=== PATIENT | female | born 1950 | race Caucasian/White ===

== ENCOUNTER → 2016-11-27 | Outpatient (CLI) | payer BC ==
--- NOTE | 2016-12-01 08:14 | MM ---
Reason for exam: screening (asymptomatic). Last mammogram was performed 1 year and 1 month ago. History: Patient is postmenopausal. Benign core biopsy of the left breast, 1996. Physical Findings: A clinical breast exam by your physician is recommended on an annual basis and results should be correlated with mammographic findings. MG 3D Screening Mammo W/Cad Bilateral CC and MLO view(s) were taken. Prior study comparison: November 08, 2015, bilateral MG screening mammo w CAD. October 31, 2014, bilateral MG screening mammo w CAD. October 02, 2013, bilateral digital screening mammo w/CAD. There are scattered fibroglandular densities. No significant changes when compared with prior studies. ASSESSMENT: Negative, BI-RAD 1 RECOMMENDATION: Routine screening mammogram of both breasts in 1 year.
== END | disposition home or self-care (01) ==
LOC: RADMAMWWP 07:15
PROVIDERS: ATTEND Surgery
DX: Z12.31 Encounter for screening mammogram for malignant neoplasm of breast (principal)
CPT/HCPCS: 77063; G0202

== ENCOUNTER → 2016-12-09 | Outpatient (CLI) | payer BC ==
--- NOTE | 2016-12-09 16:39 | WWHP ---
DATE OF DICTATION: 12/09/2016 CHIEF COMPLAINT: The patient is here for her routine gynecologic exam. HISTORY OF PRESENT ILLNESS: This is a 66-year-old G2, P2 with an LMP of 2001. The patient is without gynecologic complaints and denies any postmenopausal bleeding. The patient had a recent mammogram on 11/27/16 which was negative. PAST MEDICAL HISTORY: Chronic hypertension and elevated cholesterol. MEDICATIONS: 1. Hyzaar 1 daily. 2. Caduet 1 daily. ALLERGIES: NO KNOWN DRUG ALLERGIES. 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 SOCIAL HISTORY: She denies tobacco, alcohol and drug use. 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 REVIEW OF SYSTEMS: She has gained 2 pounds over the last year. She denies respiratory, cardiac or GI problems. She has noticed occasional leg swelling and has had some left calf discomfort which is intermittent. PHYSICAL EXAM: Blood pressure 119/81. Height 5 feet 6 inches. Weight 248 pounds. Temperature 98.6. Pulse 71. This is a well-developed, well-nourished white female who is alert and oriented x3, in no acute distress. HEENT is within normal limits. NECK: Supple without mass or thyromegaly. CHEST AND LUNGS: Clear to auscultation. HEART: Regular rate and rhythm. Breasts are without mass or discharge. Axillary exam is negative for adenopathy. BACK: Negative for CVA tenderness. ABDOMEN: Soft, nontender, without palpable masses. PELVIC EXAM: External genitalia reveal mild atrophy without lesions. Cervix and vagina reveal mild to moderate atrophy without lesions. The cervix is somewhat stenotic consistent with atrophy. There is no evidence of prolapse. The uterus is midposition, nongravid size and nontender. There are no palpable adnexal masses or tenderness. Rectovaginal exam is negative for mass or tenderness and is negative for occult blood. EXTREMITIES: Nontender. There is no calf tenderness. Lui's sign is negative. IMPRESSION: 1. A 66-year-old menopausal female with normal gynecologic exam. 2. No evidence of deep venous thrombosis. PLAN: 1. Pap smear was performed by the patient's request. She understands that I am recommending the Pap smear be done about every 3 years, but she feels strongly that she would like to have it done today and done yearly. 2. Self breast examination was discussed. 3. Mammogram will be due in one year. 4. Osteoporosis prevention was discussed. Bone density screening was recommended and a slip was given to the patient for this. 5. I have recommended that she try compression stockings to see if this helps with her calf discomfort. She can also follow up with Dr. Perea if she continues to have issues with this. 6. She will return in one year.
== END | disposition home or self-care (01) ==
LOC: WWCWWP 08:30
PROVIDERS: ATTEND Obstetrics & Gynecology
DX: Z53.9 Procedure and treatment not carried out, unspecified reason (principal)

== ENCOUNTER → 2018-01-19 | Outpatient (CLI) | payer BC ==
[2018-01-19 08:11] VITALS: BP 141/68; PULSE 64; TEMP 96.7; BMI 36.0
--- NOTE | 2018-01-19 08:59 | P.HPOB ---
History of Present Illness H&P Date: 01/19/18 Chief Complaint: The patient is here for her routine gynecologic exam and mammogram. This is a 67-year-old with an LMP of 2001. The patient is without gynecologic complaints and denies any postmenopausal bleeding. The patient's last Pap smear was on 12/09/2016 and showed ascus with negative high-risk HPV testing. Review of Systems The patient's weight has been stable over the last year. She denies respiratory , cardiac, or G.I. problems. Past Medical History Past Medical History: Hyperlipidemia, Hypertension, Osteoarthritis (OA) Additional Past Medical History / Comment(s): hx migraines, varicose veins. 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 History of Any Multi-Drug Resistant Organisms: None Reported Past Surgical History: Breast Surgery (Biopsy 1996), Orthopedic Surgery (rt knee arthroscopy), Tonsillectomy Additional Past Surgical History / Comment(s): rt cataract. 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 [employer] - Past Family History Mother Family Medical History: Cancer (Pancreas) Brother(s) Family Medical History: Cancer (Pancreas) Medications and Allergies Home Medications Medication Instructions Recorded Confirmed Type Caduet(Dose Unknown) 1 tab PO QAM 07/14/17 01/19/18 History Losartan/Hydrochlorothiazide 1 each PO QAM 07/14/17 01/19/18 History [Losartan-Hctz 100-25 mg Tab] Allergies Allergy/AdvReac Type Severity Reaction Status Date / Time No Known Allergies Allergy Verified 01/19/18 08:07 Exam - Vital Signs Vital signs: Vital Signs Temp Pulse BP 01/19/18 08:07 96.7 F L 64 141/68 Intake and Output 01/18/18 01/19/18 01/19/18 22:59 06:59 14:59 Other: Weight 113.6 Height 5'7" BMI 39. This is a well-developed well-nourished heavyset white female who is alert and oriented times 3 in no acute distress. HEENT: Within normal limits. NECK: Supple without mass or thyromegaly. CHEST AND LUNGS: Clear to auscultation. HEART: Regular rate and rhythm. BREASTS: Are without mass or discharge. AXILLARY EXAM: Negative for adenopathy. BACK: Negative for CVA tenderness. ABDOMEN: Soft, nontender, without palpable masses. PELVIC EXAM: Normal external genitalia with mild atrophy. Cervix and vagina appear normal with mild atrophy. The cervix is somewhat stenotic secondary to atrophy. There is no unusual discharge. There is no evidence of prolapse. The uterus is midposition, nongravid size and nontender. There are no palpable adnexal masses or tenderness. RECTAL EXAM: rectovaginal exam is negative for mass or tenderness and is negative for occult blood. EXTREMITIES: Nontender. IMPRESSION: 1. 67-year-old menopausal female with normal gynecologic exam. 2. Previous ascus Pap smear with negative high-risk HPV testing on 12/09/2016. PLAN: 1. Pap smear with high-risk HPV testing (co-test)was done. 2. Self breast awareness was discussed. 3. Screening mammogram will be done today. 4. Osteoporosis prevention was discussed. Bone density screening will be done today. 5. I have recommended screening colonoscopy since it has been about 10 years since her last one. She will talk to Dr. Perea about arranging this. 6. She will return in one year.
--- NOTE | 2018-01-19 11:28 | BD ---
EXAMINATION TYPE: Axial Bone Density DATE OF EXAM: 01/19/2018 COMPARISON: 10/18/2003 CLINICAL HISTORY: Z78.0 POST SHAHBAZ WITHOUT HRT Height: 64.7 IN Weight: 251 LBS RISK FACTORS HISTORY OF: Active: YES Postmenopausal woman: AGE 52 MEDICATIONS: Additional Medications: BLOOD PRESSURE MEDS EXAM MEASUREMENTS: Bone mineral densitometry was performed using the [employer] System. Bone mineral density as measured about the Lumbar spine is: ----- L1-L4(G/cm2): 1.373 T Score Values are as follows: ----- L2: 0.5 ----- L3: 2.2 ----- L4: 2.3 ----- L1-L4: 1.6 Bone mineral density has: Increased 1.5% since study of: 10/18/2003 Bone mineral density about the R hip (g/cm2): 0.984 Bone mineral density about the L hip (g/cm2): 1.035 T Score values are as follows: -----R Neck: -0.4 -----L Neck: 0.0 -----R Total: 0.3 -----L Total: 0.6 Bone mineral density has: Decreased -4.0% since study of: 10/18/2003 IMPRESSION: No evidence for osteoporosis or osteopenia. NOTE: T-SCORE=SD OF THE YOUNG ADULT MEAN.
--- NOTE | 2018-01-20 13:46 | MM ---
Reason for exam: screening (asymptomatic). Last mammogram was performed 1 year and 2 months ago. History: Patient is postmenopausal. Benign core biopsy of the left breast, 1996. Physical Findings: A clinical breast exam by your physician is recommended on an annual basis and results should be correlated with mammographic findings. MG 3D Screening Mammo W/Cad Bilateral CC and MLO view(s) were taken. Prior study comparison: November 27, 2016, bilateral MG 3d screening mammo w/cad. November 08, 2015, bilateral MG screening mammo w CAD. The breast tissue is heterogeneously dense. This may lower the sensitivity of mammography. Stable benign calcifications. There is no discrete abnormality. No significant changes when compared with prior studies. ASSESSMENT: Benign, BI-RAD 2 RECOMMENDATION: Routine screening mammogram of both breasts in 1 year.
--- NOTE | 2018-01-25 18:49 | P.PN ---
Progress Note - Text Progress Note Date: 01/25/18 OUTPATIENT FOLLOW-UP NOTE TEST(S)/RESULTS: test results from 01/19/2018 include negative Pap smear, negative high risk HPV, benign mammogram and normal bone density METHOD OF NOTIFICATION: the patient was notified by phone PATIENT COMMENTS: understands the results DIAGNOSIS: negative test results DISCUSSION: the patient's Pap smear Las year showed ascus with negative high- risk HPV. PLAN: the patient can return to normal cervical screening. She will return in one year for her annual exam. Pap smear will be repeated in 2 to 3 years. Mammogram in one year and bone density testing in 6 years.
== END | disposition home or self-care (01) ==
LOC: WWCWWP 07:57
PROVIDERS: ATTEND Obstetrics & Gynecology
DX: Z12.31 Encounter for screening mammogram for malignant neoplasm of breast (principal); Z78.0 Asymptomatic menopausal state
CPT/HCPCS: 77063; 77067; 77080

== ENCOUNTER → 2019-03-21 | Outpatient (CLI) | payer BC ==
[2019-03-21 14:16] VITALS: BP 132/77; PULSE 77; RESP 18; TEMP 98.1; BMI 37.3
--- NOTE | 2019-03-21 15:04 | P.HPOB ---
History of Present Illness H&P Date: 03/21/19 Chief Complaint: The patient is here for her routine gynecologic exam and ma mmogram. This is a 68-year-old with an LMP of 2001. The patient is without gynecologic complaints and denies any postmenopausal bleeding. Review of Systems She has lost about 12 pounds over the past year. She denies respiratory, cardiac and G.I. problems. She denies maltreatment or problems with falling. : she denies any significant problems with urinary leakage. Past Medical History Past Medical History: Hyperlipidemia, Hypertension, Osteoarthritis (OA) Additional Past Medical History / Comment(s): hx migraines, varicose veins. 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 History of Any Multi-Drug Resistant Organisms: None Reported Past Surgical History: Breast Surgery, Orthopedic Surgery, Tonsillectomy Additional Past Surgical History / Comment(s): rt cataract. Right breast biopsy. Right arthroscopic knee surgery. Colonoscopy 2018(2nd). 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 - Past Family History Mother Family Medical History: Cancer Additional Family Medical History / Comment(s): Cancer of the pancreas. Brother(s) Family Medical History: Cancer Additional Family Medical History / Comment(s): Cancer of the pancreas. Medications and Allergies Home Medications Medication Instructions Recorded Confirmed Type Caduet(Dose Unknown) 1 tab PO QAM 07/14/17 03/21/19 History Losartan/Hydrochlorothiazide 1 each PO QAM 07/14/17 03/21/19 History [Losartan-Hctz 100-25 mg Tab] Allergies Allergy/AdvReac Type Severity Reaction Status Date / Time No Known Allergies Allergy Verified 03/21/19 14:17 Exam Vital Signs Temp Pulse Resp BP Pulse Ox 03/21/19 14:08 98.1 F 77 18 132/77 96 Intake and Output 03/20/19 03/21/19 03/21/19 22:59 06:59 14:59 Other: Weight 107.955 kg Height 5'7", weight 238 pounds, BMI 37.3. This is a well-developed well-nourished heavyset white female who is alert and oriented times 3 in no acute distress. HEENT: Within normal limits. NECK: Supple without mass or thyromegaly. CHEST AND LUNGS: Clear to auscultation. HEART: Regular rate and rhythm. BREASTS: Are without mass or discharge. AXILLARY EXAM: Negative for adenopathy. BACK: Negative for CVA tenderness. ABDOMEN: Soft, nontender, without palpable masses. PELVIC EXAM: Normal external genitalia with mild atrophy. Cervix and vagina appear normal with mild atrophy. The cervix is somewhat stenotic secondary to atrophy. There is no unusual discharge. There is no evidence of prolapse. The uterus is midposition, nongravid size and nontender. There are no palpable adnexal masses or tenderness. RECTAL EXAM: rectovaginal exam is negative for mass or tenderness and is negative for occult blood. EXTREMITIES: Nontender. IMPRESSION: 1. 68-year-old menopausal female with normal gynecologic exam. 2. History of ASCUS Pap smear with negative high-risk HPV testing in 2017. She had a negative Pap smear co-test in 2018. PLAN: 1. We talked about her Pap smear testing and I have recommended to resume Pap smears every 2 to 3 years. She feels strongly that she would like to have Pap smear done again today because of her abnormal Pap smear in 2017. Pap smear was performed. 2. Self breast awareness was discussed with the patient. 3. Screening mammogram will be done today. 4. Osteoporosis prevention was discussed. I have stressed the importance of adequate calcium, vitamin D and regular exercise. Recommended amounts of calcium and vitamin D were also discussed. She had a normal bone density test done on 01/19/2018 and this will be repeated after 6 years. 5. She states she does not get flu shots in the fall. I recommended that she reconsider this and I have given her reasons why. 6. She was advised to return in one year for her annual well woman exam.
--- NOTE | 2019-03-23 11:34 | MM ---
Reason for exam: screening (asymptomatic). Last mammogram was performed 1 year and 2 months ago. History: Patient is postmenopausal. Benign core biopsy of the left breast, 1996. Physical Findings: A clinical breast exam by your physician is recommended on an annual basis and results should be correlated with mammographic findings. MG 3D Screening Mammo W/Cad Bilateral CC and MLO view(s) were taken. Prior study comparison: January 19, 2018, bilateral MG 3d screening mammo w/cad. November 27, 2016, bilateral MG 3d screening mammo w/cad. There are scattered fibroglandular densities. No significant changes when compared with prior studies. ASSESSMENT: Benign, BI-RAD 2 RECOMMENDATION: Routine screening mammogram of both breasts in 1 year.
== END ==
LOC: WWCWWP 14:01
PROVIDERS: ATTEND Obstetrics & Gynecology
DX: Z12.31 Encounter for screening mammogram for malignant neoplasm of breast (principal)
CPT/HCPCS: 77063; 77067

== ENCOUNTER → 2020-06-11 | Outpatient (CLI) | payer BC ==
[2020-06-11 09:30] VITALS: BP 147/84; PULSE 62; RESP 18; TEMP 97.8
--- NOTE | 2020-06-11 10:15 | P.HPOB ---
History of Present Illness H&P Date: 06/11/20 Chief Complaint: The patient is here for her routine gynecologic exam. This is a 70-year-old with an LMP of 2001. The patient is without gynecologic complaints. Review of Systems She has gained about 18 pounds over the past year. She denies respiratory, cardiac and G.I. problems. She denies maltreatment or problems with falling. : Occasional urinary leakage if she doesn't get to the bathroom in time. She especially notices this when she gets up in the morning. Past Medical History Past Medical History: Hyperlipidemia, Hypertension, Osteoarthritis (OA) Additional Past Medical History / Comment(s): hx migraines, varicose veins. 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 History of Any Multi-Drug Resistant Organisms: None Reported Past Surgical History: Breast Surgery, Orthopedic Surgery, Tonsillectomy Additional Past Surgical History / Comment(s): rt cataract. Right breast biopsy . Right arthroscopic knee surgery. Colonoscopy 2018(2nd). 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. - Past Family History Mother Family Medical History: Cancer Additional Family Medical History / Comment(s): Cancer of the pancreas. Brother(s) Family Medical History: Cancer Additional Family Medical History / Comment(s): Cancer of the pancreas. Medications and Allergies Home Medications Medication Instructions Recorded Confirmed Type Caduet(Dose Unknown) 1 tab PO QAM 07/14/17 06/11/20 History Losartan/Hydrochlorothiazide 1 each PO QAM 07/14/17 06/11/20 History [Losartan-Hctz 100-25 mg Tab] Allergies Allergy/AdvReac Type Severity Reaction Status Date / Time No Known Allergies Allergy Verified 06/11/20 09:24 Exam Vital Signs Temp Pulse Resp BP Pulse Ox 06/11/20 09:24 97.8 F 62 18 147/84 98 Intake and Output 06/10/20 06/11/20 06/11/20 22:59 06:59 14:59 Other: Weight 116.12 kg Height 5 feet 6-1/2 inches, weight 256 pounds, BMI 40.7. This is a well-developed well-nourished heavyset white female who is alert and oriented times 3 in no acute distress. HEENT: Within normal limits. NECK: Supple without mass or thyromegaly. CHEST AND LUNGS: Clear to auscultation. HEART: Regular rate and rhythm. BREASTS: Are without mass or discharge. AXILLARY EXAM: Negative for adenopathy. BACK: Negative for CVA tenderness. ABDOMEN: Soft, nontender, without palpable masses. PELVIC EXAM: Normal external genitalia with mild atrophy. Cervix and vagina appear normal mild atrophy. There is no unusual discharge. There is no evidence of prolapse. The uterus is midposition, nongravid size and nontender. There are no palpable adnexal masses or tenderness. RECTAL EXAM: Rectovaginal exam is negative for mass or tenderness and is negative for occult blood. EXTREMITIES: Nontender. IMPRESSION: 1. 70-year-old menopausal female with normal gynecologic exam. 2. Elevated blood pressure with history of chronic hypertension. PLAN: 1. Pap smear was deferred since she had a normal one on 03/21/2019. We will plan on repeating it again at her next well woman examination because of her abnormal Pap smear showing ASCUS with negative high-risk HPV the testing in 2017. She has had 2 normal one since then. If the next Pap smear is negative, we'll consider discontinuing Pap smears. 2. Self breast awareness was discussed with the patient. 3. Screening mammogram is due and the order slip was given to the patient for this. 4. Osteoporosis prevention was discussed. I have stressed the importance of adequate calcium, vitamin D and regular exercise. Recommended amounts of calcium and vitamin D were also discussed. She had a normal bone density test in 2018 and we will plan on repeating this in approximately 2022. 5. She states she did not take her blood pressure medication this morning and she will do this as soon as possible. I have recommended that she check her own blood pressures on a regular basis and follow-up with Dr. Perea for blood pressure elevations. 6. She states she does not get flu shots. I have strongly recommended that she reconsider this. 7. The patient was advised to return in 1-2 years for her well woman examination.
== END | disposition home or self-care (01) ==
LOC: WWCWWP 09:14
PROVIDERS: ATTEND Obstetrics & Gynecology
DX: Z53.9 Procedure and treatment not carried out, unspecified reason (principal)

== ENCOUNTER → 2020-11-07 | Outpatient (CLI) | payer BC ==
--- NOTE | 2020-11-08 11:18 | MM ---
Reason for exam: screening (asymptomatic). Last mammogram was performed 1 year and 8 months ago. History: Patient is postmenopausal. Benign core biopsy of the left breast, 1996. Physical Findings: A clinical breast exam by your physician is recommended on an annual basis and results should be correlated with mammographic findings. MG 3D Screening Mammo W/Cad Bilateral CC and MLO view(s) were taken. Prior study comparison: March 21, 2019, bilateral MG 3d screening mammo w/cad. January 19, 2018, bilateral MG 3d screening mammo w/cad. The breast tissue is heterogeneously dense. This may lower the sensitivity of mammography. Stable benign calcifications. No significant changes when compared with prior studies. ASSESSMENT: Benign, BI-RAD 2 RECOMMENDATION: Routine screening mammogram of both breasts in 1 year.
== END | disposition home or self-care (01) ==
LOC: RADMAMWWP 08:51
PROVIDERS: ATTEND Obstetrics & Gynecology
DX: Z12.31 Encounter for screening mammogram for malignant neoplasm of breast (principal)
CPT/HCPCS: 77063; 77067

== ENCOUNTER 2020-11-20 06:19 | Day surgery (SDC) | payer BC ==
[2020-11-14 15:33] VITALS: BMI 39.1
--- NOTE | 2020-11-19 22:59 | HP ---
HISTORY AND PHYSICAL DATE OF SURGERY: 11/20/2020 Merna Yun is a 70-year-old patient seen with progressive right shoulder pain. We discussed options for treatment. She elected to proceed with arthroscopy. Consent regarding the procedure was obtained. Clearance was provided by Dr. Cristian Perea. PAST MEDICAL HISTORY: Hypertension. PAST SURGICAL HISTORY: Knee arthroscopy. DAILY MEDICATIONS: Caduet. ALLERGIES: NONE. SOCIAL HISTORY: She denies current tobacco use. PHYSICAL EVALUATION OF THE RIGHT SHOULDER: Flexion 90 degrees, abduction 80 degrees. External rotation is 35 degrees with pain and weakness. Tenderness along the anterolateral acromion and rotator cuff insertion site. Impingement sign is positive at 90 degrees. Drop-arm sign is positive. Distal neurovascular exam is intact. RADIOGRAPHS: Radiographs of the right shoulder revealed a type 2 acromion, acromioclavicular joint osteoarthritis and cystic changes of the greater tuberosity. Right shoulder MRI revealed rotator cuff tendon tear. IMPRESSION: 1. Right shoulder impingement with rotator cuff tear. 2. Right shoulder acromioclavicular joint osteoarthritis. 3. Hypertension. PLAN: Right shoulder arthroscopy with subacromial decompression, arthroscopic rotator cuff repair, Megan procedure and debridement. MMODL / IJN: [id number] /
[~2020-11-20 06:19] MED LIST: DEXAMETHASONE SOD PHOSPHATE 4 MG/ML 1 ML VIAL IV ONE; LACTATED RINGERS 1,000 ML IV SCH; LIDOCAINE 1% (10MG/ML) FOR IV START INTRADERMA PRN; MIDAZOLAM 2 MG/2 ML VIAL IV PRN; ONDANSETRON 4 MG/2 ML VIAL IVP ONE
[2020-11-20] MEDS ORDERED: fentaNYL (PF) 50 MCG/ML 2 ML AMP IVP PRN (07:00)
[2020-11-20] MEDS ORDERED: NEOSTIGMINE 1 MG/ML 10 ML VIAL ONE (07:55)
[2020-11-20] MEDS ORDERED: LIDOCAINE 1% INJ 10MG/ML (20 ML MDV) ONE (07:55)
[2020-11-20] MEDS ORDERED: DEXAMETHASONE SOD PHOSPHATE 4 MG/ML 1 ML VIAL ONE (07:55)
[2020-11-20] MEDS ORDERED: fentaNYL (PF) 50 MCG/ML 2 ML AMP ONE (07:55)
[2020-11-20] MEDS ORDERED: GLYCOPYRROLATE 0.2 MG/ML 2 ML VIAL ONE (07:55)
[2020-11-20] MEDS ORDERED: SUCCINYLCHOLINE CHLORIDE 100 MG/5 ML SYR IV ONE (07:55)
[2020-11-20] MEDS ORDERED: ROPIVACAINE 5 MG/ML 30 ML VIAL ONE (07:55)
[2020-11-20] MEDS ORDERED: PROPOFOL 10 MG/ML 20 ML VIAL IV ONE (07:55)
[2020-11-20] MEDS ORDERED: ROCURONIUM 10 MG/ML (5 ML VIAL) IV ONE (07:55)
--- NOTE | 2020-11-20 09:59 | P.OP ---
Date of Procedure: 11/20/20 Preoperative Diagnosis: Right shoulder impingement Postoperative Diagnosis: 1. Right shoulder rotator cuff tear 2. Right shoulder impingement 3. Right shoulder acromioclavicular joint osteoarthritis 4. Right shoulder partial long head biceps tendon tear Procedure(s) Performed: 1. Right shoulder arthroscopic rotator cuff repair 2. Right shoulder arthroscopic subacromial decompression 3. Right shoulder arthroscopic Megan procedure 4. Right shoulder arthroscopic biceps tenotomy Implants: 3Arthrex swivel lock anchors Anesthesia: GETA, regional (Interscalene block) Surgeon: Candido Aponte Four Horse Hitch Driver #1: Dayo Hill Estimated Blood Loss (ml): 11 Pathology: none sent Condition: stable Disposition: PACU Indications for Procedure: 70-year-old patient seen with progressive right shoulder pain. After treatment options were discussed, she elected to proceed with arthroscopy. Operative Findings: See description of procedure Description of Procedure: Patient underwent an interscalene block by department of anesthesia. The patient was then taken to the operative suite. The patient underwent a general anesthetic by the department of anesthesia. The patient was placed into a lateral position and secured. There was appropriate padding of the bony prominence. Right shoulder was then prepped and draped in normal sterile orthopedic fashion. We placed the extremity in 10 pounds of longitudinal traction. A posterior incision was now made for a posterior working portal site. The trocar and cannula were inserted into the glenohumeral joint. Arthroscopy was initiated. Spinal needle was now inserted anteriorly, to ascertain the anterior working portal site. An incision was now made in that area, a trocar was inserted followed by a probe. There was some mild fraying of the anterior labrum. There were grade 1 chondromalacia changes of the glenoid fossa. There was no significant chondromalacia involving the humeral head. There was some partial tearing and hyperemia of the long head biceps tendon. I performed an arthroscopic biceps tenotomy. I debrided that mild fraying of the anterior labrum. I again probe the labrum and it was found to be stable. Instruments now removed from glenohumeral joint. Utilizing the posterior working portal site, the trocar and cannula were inserted into the subacromial space. Arthroscopy initiated. I made an incision 2 fingerbreadths lateral to the acromion. I introduced my trocar followed by my ArthroCare ablator. I now began ablating thick subacromial bursal tissue, which exposed the undersurface of the anterior acromion. There was diminished subacromial space. There was a very prominent anterior acromion. A motorized bur was introduced and a subacromial decompression was performed. I also excised some osteophytes off the inferior aspect of the distal clavicle. The AC joint was visualized and noted to be fairly arthritic. The motorized bur was introduced in the anterior portal site and a Megan procedure was performed without difficulty, decompressing the AC joint nicely. I turned my attention to the rotator cuff. There was a 1.5-2 cm tear. I debrided the margins getting down to stable tendon tissue. The defect tear measured approximately 2 cm. I abraded the footprint with a motorized bur. I punched the hole for medial row fixation. I introduced a Arthrex swivel lock anchor with 3 fiber tapes with good fixation noted. I now passed all 6 limbs of suture through good bites of rotator cuff tendon. I now punched 2 holes for lateral row fixation again I held the punch and camera while Dayo HERRERA used a mallet to tap in the punch. We now passed sutures through both anchors and individually I introduced the anchors into the pre-punch holes I held the anchor guide in position with one hand holding the camera with the other hand while aDyo HERRERA tensioned the sutures and screwed in the anchors one at a time. All residual suture limbs were now clipped. We had good compression of the tendon along the entire footprint. Instruments were now removed from the portal sites. All portal sites were approximated with nylon suture. Sterile dressings were applied followed by a shoulder sling. Dayo HERRERA assisted in this complex case. The patient was awakened, transferred to a bed, and taken to recovery in stable condition.
[2020-11-20 10:06] VITALS: TEMP 97
[2020-11-20 10:13] VITALS: RESP 16
[2020-11-20 11:34] VITALS: BP 126/78; PULSE 73
--- NOTE | 2020-11-20 16:43 | P.ANPRN ---
Procedure Note - Anesthesia - Nerve Block Performed Right Interscalene Time Out Performed: Yes (07:44) Date of Procedure: 11/20/20 Procedure Start Time: :44 Procedure Stop Time: :58 Location of Patient: PreOp Indication: Acute Post-Operative Pain, Requested by Surgeon (Dr Aponte) Sedation Type: Sedate with meaningful contact maintained Preparation: Sterile Prep Position: Supine Catheter: None Needle Types: Pajunk Needle Gauge: Other (see comment) (22g) Ultrasound used to visualize needle placement: Yes Ultrasound used to observe medication spread: Yes Injectate: 0.5% Ropivacaine (see comment for volume) (20cc + Decadron 4mg) Blood Aspirated: No Pain Paresthesia on Injection Noted: No Resistance on Injection: Normal Image Stored and Saved: Yes Events: Uneventful and Well Tolerated
== END 2020-11-20 12:03 | disposition home or self-care (01) ==
LOC: OR 06:19
PROVIDERS: ATTEND Orthopaedic Surgery
DX: M75.101 Unspecified rotator cuff tear or rupture of right shoulder, not specified as traumatic (principal); M25.811 Other specified joint disorders, right shoulder; M19.011 Primary osteoarthritis, right shoulder; S46.111A Strain of muscle, fascia and tendon of long head of biceps, right arm, initial encounter; M94.211 Chondromalacia, right shoulder; M25.711 Osteophyte, right shoulder; I10 Essential (primary) hypertension; E78.5 Hyperlipidemia, unspecified; Z79.899 Other long term (current) drug therapy; Z98.890 Other specified postprocedural states; Z90.89 Acquired absence of other organs; X58.XXXA Exposure to other specified factors, initial encounter
CPT/HCPCS: 64415; 76942; 29827; 29826; 29824; C1713 ×3; J2250; J1100; J2710; J0690; J2405; J2001; J3010; J2795; J0330; J2704

== ENCOUNTER → 2021-07-02 | Outpatient (CLI) | payer BC ==
[2021-07-02 11:38] VITALS: BP 124/78; PULSE 70; TEMP 98.2
--- NOTE | 2021-07-02 12:24 | P.HPOB ---
History of Present Illness H&P Date: 07/02/21 Chief Complaint: The patient is here for her routine gynecologic exam. This is a 71-year-old with an LMP of 2001. The patient is without gynecologic complaints. The patient states she had a spot of blood shortly after her last pelvic exam or than one year ago, but has not had any bleeding since then. Review of Systems The patient has lost 3 pounds over the last year. She denies respiratory, cardiac, or G.I. problems. Past Medical History Past Medical History: Hyperlipidemia, Hypertension, Osteoarthritis (OA) Additional Past Medical History / Comment(s): hx migraines, varicose veins. 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 History of Any Multi-Drug Resistant Organisms: None Reported Past Surgical History: Breast Surgery, Orthopedic Surgery, Tonsillectomy Additional Past Surgical History / Comment(s): rt cataract. Right breast biopsy. Right arthroscopic knee surgery. Colonoscopy 2018(2nd). Past Anesthesia/Blood Transfusion Reactions: No Reported Reaction Past Psychological History: No Psychological Hx Reported Smoking Status: Never smoker Past Alcohol Use History: Rare (3 per year) Past Drug Use History: None Reported Additional History: She has been since 1985 and is infrequently sexually active. 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 - Past Family History Mother Family Medical History: Cancer Additional Family Medical History / Comment(s): Cancer of the pancreas. Brother(s) Family Medical History: Cancer Additional Family Medical History / Comment(s): Cancer of the pancreas. Father Family Medical History: Cancer Additional Family Medical History / Comment(s): Cancer on lip. Medications and Allergies Home Medications Medication Instructions Recorded Confirmed Type Losartan/Hydrochlorothiazide 1 each PO QAM 07/14/17 07/02/21 History [Losartan-Hctz 100-25 mg Tab] Furosemide [Lasix] 20 mg PO DAILY PRN 11/14/20 07/02/21 History amLODIPine/ATORVASTATIN 1 tab PO QAM 11/14/20 07/02/21 History [amLODIPine/ATORVASTATIN 5-20 MG] Allergies Allergy/AdvReac Type Severity Reaction Status Date / Time No Known Allergies Allergy Verified 07/02/21 11:31 Exam Vital Signs Temp Pulse BP Pulse Ox 07/02/21 11:32 98.2 F 70 124/78 98 Intake and Output 07/01/21 07/02/21 07/02/21 22:59 06:59 14:59 Other: Weight 114.759 kg Height 5 feet 6 inches, weight 253 pounds, BMI 40.8. This is a well-developed well-nourished heavyset white female who is alert and oriented times 3 in no acute distress. HEENT: Within normal limits. NECK: Supple without mass or thyromegaly. CHEST AND LUNGS: Clear to auscultation. HEART: Regular rate and rhythm. BREASTS: Are without mass or discharge. AXILLARY EXAM: Negative for adenopathy. BACK: Negative for CVA tenderness. ABDOMEN: Soft, nontender, without palpable masses. PELVIC EXAM: Normal external genitalia with mild atrophy. Cervix and vagina appear normal is mild atrophy. The cervix is somewhat stenotic secondary to atrophy. There is no unusual discharge. There is no evidence of prolapse. The uterus is midposition, nongravid size and nontender. There are no palpable adnexal masses or tenderness. RECTAL EXAM: Rectovaginal exam is negative for mass or tenderness and is negative for occult blood. EXTREMITIES: Nontender. IMPRESSION: 1. 71-year-old menopausal female with normal gynecologic exam. PLAN: 1. Pap smear was performed. We have continued Pap smears beyond 65 because of an abnormal Pap smear in 2017. If this Pap smear is negative, we will have 3 negative Pap smears in a row and we will plan on discontinuing Pap smears. 2. Self breast awareness was discussed with the patient. We have also discussed symptoms associated with inflammatory breast cancer. 3. Screening mammogram will be due in October 2021. The order slip was given to the patient for this. 4. Osteoporosis prevention was discussed. I have stressed the importance of adequate calcium, vitamin D and regular exercise. Recommended amounts of calcium and vitamin D were also discussed. She had a normal bone density test in 2017 and we will plan on repeating this in approximately 2023. 5. She has completed her Covid vaccination series. She will look into getting a booster. 6. She was instructed to call if she has any vaginal bleeding other than immediately after her Pap smear. 7. The patient was advised to return in 1-2 years for her well woman examination.
== END ==
LOC: WWCWWP 11:19
PROVIDERS: ATTEND Obstetrics & Gynecology
DX: Z01.419 Encounter for gynecological examination (general) (routine) without abnormal findings (principal); E78.5 Hyperlipidemia, unspecified; I10 Essential (primary) hypertension; M19.90 Unspecified osteoarthritis, unspecified site; G43.909 Migraine, unspecified, not intractable, without status migrainosus; Z79.899 Other long term (current) drug therapy

== ENCOUNTER → 2021-08-05 | Outpatient (CLI) | payer BC ==
--- NOTE | 2021-08-05 12:00 | US ---
EXAMINATION TYPE: US pelvis complete transvag DATE OF EXAM: 08/05/2021 COMPARISON: NONE CLINICAL HISTORY: N95.0 Postmenopausal bleeding. Postmenopausal bleeding, LMP patient unsure,possible in her 50's, G 2, P 2 TECHNIQUE: Transvaginal (TV) and Transabdominal (TA) . Transabdominal sonographic images of the pel vis were acquired. Transvaginal sonographic images were medically necessary to better assess the fol lowing anatomy: Endometrium Date of LMP: Patient unsure EXAM MEASUREMENTS: Uterus: 9.1 x 5.6 x 4.9 cm Endometrial Stripe: 1.8 cm Right Ovary: not seen cm Left Ovary: not seen cm 1. Uterus: Anteverted 2. Endometrium: Heterogeneous 3. Right Ovary: not seen 4. Left Ovary: not seen 5. Bilateral Adnexa: wnl 6. Posterior cul-de-sac: wnl Heterogenous endometrium with internal vascularity, cystic area seen in cervix measuring 2.2 x 2.2 x 1.0 cm, hypoechoic area seen in cervix possible cyst with internal echoes measuring 1.8 x 1.6 x 1.0 c m IMPRESSION: Abnormal endometrium, consider biopsy. Probable nabothian cysts.
--- NOTE | 2021-08-05 17:19 | P.PN ---
Progress Note - Text Progress Note Date: 08/05/21 OUTPATIENT FOLLOW-UP NOTE TEST(S)/RESULTS: Pelvic ultrasound done on 08/05/2021 shows endometrial thickening. METHOD OF NOTIFICATION: She was notified by phone. PATIENT COMMENTS: The patient states she has not noticed any more vaginal bleeding. DIAGNOSIS: Small postmenopausal bleeding with thickened endometrium by ultrasound. DISCUSSION: PLAN: Endometrial biopsy will be scheduled for tomorrow, 08/06/2021 at 11:20 AM. The procedure was described to the patient and the reasoning for doing this sampling. She is to take to [id number] Advil approximately 2-3 hours prior to the appointment.
== END | disposition home or self-care (01) ==
LOC: RADUSWWP 10:21
PROVIDERS: ATTEND Obstetrics & Gynecology
DX: R93.89 Abnormal findings on diagnostic imaging of other specified body structures (principal)
CPT/HCPCS: 76830; 76856

== ENCOUNTER → 2021-08-06 | Day surgery (SDC) | payer BC ==
[2021-08-06 11:36] VITALS: BP 131/84; PULSE 80; RESP 18; TEMP 98.3
--- NOTE | 2021-08-06 12:29 | P.PCN ---
Date of Procedure: 08/06/21 Preoperative Diagnosis: Small postmenopausal bleeding with thickened endometrium Postoperative Diagnosis: Small postmenopausal bleeding with thickened endometrium Procedure(s) Performed: Endometrial biopsy Anesthesia: none Surgeon: Elmer West Estimated Blood Loss (ml): 1 Pathology: other (Endometrial tissue) Condition: stable Disposition: same day Indications for Procedure: This was a 71-year-old menopausal female with LNMP of 2001. The patient developed small vaginal spotting 2 weeks ago which resolved. Pelvic ultrasound showed a thickened endometrium measuring 1.8 cm. Operative Findings: The cervix was somewhat stenotic. The uterus sounded to 9.5 cm. A small amount of tissue was obtained. Description of Procedure: The endometrial biopsy procedure was described to the patient. All of her questions were answered. Possible risks were discussed including bleeding, infection and uterine perforation. The patient was placed in the lithotomy position. Bimanual examination was performed. The uterus is mid positioned and is multiparous nongravid size. The speculum was inserted and the cervix and vagina were prepped with betadine solution. The anterior lip of the cervix was grasped with an Allis clamp. The 3mm endometrial biopsy curette could not pass through the slightly stenotic cervix. A small dilator was used to slightly dilate the cervix. I was still unable to pass through the cervix. The Allis clamp was then placed on the posterior cervix and the endometrial biopsy instrument past without difficulty. The uterus sounded to 9.5 cm. A zxju-isc-ytody rotating motion was used and a all amount of tissue was obtained and sent for pathological examination. The procedure was repeated once to obtain a small amount of additional tissue. This was also sent for pathological examination The patient tolerated the procedure well. There were no complications. The post procedure vitals are as follows: blood pressure 139/85. pulse 82, and pulse oximeter 95%. Post procedure instructions were given to the patient.
--- NOTE | 2021-08-12 16:30 | P.PN ---
Progress Note - Text Progress Note Date: 08/12/21 OUTPATIENT FOLLOW-UP NOTE TEST(S)/RESULTS: Endometrial biopsy done on 08/06/2021 had a pathology report showing disordered proliferation endometrium with fragments of an endometrial polyp. METHOD OF NOTIFICATION: She was notified by phone. PATIENT COMMENTS: The patient had brief light vaginal bleeding after the endometrial biopsy, but this resolved and she denies any other problems from the endometrial biopsy. She is now in [place] on vacation. She has noticed that when she walks for longer distances, she feels like she gets a transient sore throat. This goes away when she rests. DIAGNOSIS: Brief postmenopausal bleeding with endometrial biopsy showing disordered proliferative lining with fragments of an endometrial polyp which was benign. DISCUSSION: I recommended that she use Provera 10 mg daily 14 days. She can have a withdrawal bleed. She was instructed to call if she has bleeding beyond the withdrawal bleed or if problems. As for the throat symptoms she is having with walking longer distances, I have recommended that she follow up with her PCP when she returns from [place], or if it is becoming worse or more problematic, she should see a doctor in [place], such as an urgent care clinic or emergency room. PLAN: The electronic prescription for Provera will be sent to [facility] pharmacy. If she is having recurrent vaginal bleeding, we will refer for possible hysteroscopy and D&C.
== END ==
LOC: WWCWWP 11:20
PROVIDERS: ATTEND Obstetrics & Gynecology
DX: N84.0 Polyp of corpus uteri (principal); N80.9 Endometriosis, unspecified; N85.8 Other specified noninflammatory disorders of uterus; N95.0 Postmenopausal bleeding; R93.89 Abnormal findings on diagnostic imaging of other specified body structures
CPT/HCPCS: 88305

== ENCOUNTER → 2021-10-10 | Outpatient (CLI) | payer BC ==
[2021-10-10 11:44] LABS: HCT 43.6 % (37.2-46.3); HGB 13.6 g/dL (12.0-15.0); MCHC 31.2 g/dL (32.0-37.0); MCV 96.2 fL (80.0-97.0); Mean Platelet Volume 11.3 fL (9.5-12.2); NRBC Per 100 WBC 0 /100 WBCS (0.0-0.0); Platelet Count 241 X 10*3/uL (140-440); RBC 4.53 X 10*6/uL (4.10-5.20); RDW 13.3 % (11.5-14.5); WBC 7.62 X 10*3/uL (4.50-10.00)
[2021-10-10 12:14] LABS: African American GFR (CKD) 64.5 (60.0-200.0); BUN/Creat Ratio 19.61 Ratio (12.00-20.00); Calcium 9.7 mg/dL (8.7-10.3); Carbon Dioxide 26.5 mmol/L (20.0-27.5); Chloride 104 mmol/L (96-109); Glucose 129 mg/dL (70-110); LDL Cholesterol,Calculated 96.4 mg/dL (0.0-131.0); Non-African American GFR(CKD) 55.7 (60.0-200.0); Potassium 4.4 mmol/L (3.5-5.5); Sodium 143 mmol/L (135-145)
== END | disposition home or self-care (01) ==
LOC: LABWHC1 07:51
PROVIDERS: ATTEND Internal Medicine Cardiovascular Disease
DX: E78.2 Mixed hyperlipidemia (principal)
CPT/HCPCS: 36415; 80048; 80061; 84443; 85027

== ENCOUNTER 2021-11-25 08:48 | Day surgery (SDC) | payer BC ==
[2021-11-24 08:23] VITALS: BMI 40.3
[~2021-11-25 08:48] MED LIST changes: +HYDROmorphone 0.5 MG/0.5 ML SYRINGE IVP PRN; -LIDOCAINE 1% (10MG/ML) FOR IV START INTRADERMA PRN; -MIDAZOLAM 2 MG/2 ML VIAL IV PRN; +Pre Op ABX Message 1 EACH MISC MISCELLANE ONE
[2021-11-25] MEDS ORDERED: LIDOCAINE 1% INJ 10MG/ML (20 ML MDV) ONE (10:01)
[2021-11-25] MEDS ORDERED: fentaNYL (PF) 50 MCG/ML 2 ML AMP ONE (10:01)
[2021-11-25] MEDS ORDERED: KETOROLAC 15 MG/ML 1 ML VIAL ONE (10:01)
[2021-11-25] MEDS ORDERED: PROPOFOL 10 MG/ML 20 ML VIAL IV ONE (10:01)
--- NOTE | 2021-11-25 10:35 | P.OP ---
Date of Procedure: 11/25/21 Preoperative Diagnosis: Postmenopausal bleeding, endometrial polyp Postoperative Diagnosis: Same, pathology pending Procedure(s) Performed: Hysteroscopy, D&C, polypectomy Anesthesia: LEXXA Surgeon: Radha Andrews Estimated Blood Loss (ml): 25 IV fluids (ml): 200 Urine output (ml): 159 Pathology: other (Endometrial curettings and polyps) Condition: stable Disposition: PACU Operative Findings: Grade 2-3 rectocele, large endocervical polyp and endometrial polyps as well Description of Procedure: Patient is brought to the operative suite where a general anesthetic is a strategic analyst without difficulty. She's placed in the dorsal lithotomy position. Cervix, vagina, perineal bodies are all prepped and draped in usual sterile fashion. Examination under anesthesia reveals a grade 2-3 rectocele, negative adnexa bilaterally. Bladder is drained for approximately 150 mL of clear yellow urine. The appropriate timeout is performed to assure proper patient and procedural identification. Weighted speculum was placed into the vagina. Anterior lip of the cervix is grasped with a double-tooth tenaculum. Cervix is gently and systematically dilated using Hanks dilators. Hysteroscope was then placed and the cavity is infused with sterile saline. Inspection of the cavity reveals multiple endometrial polyps along with a predominant polyp setting at the external os. Hysteroscope was removed. The external large polyp is removed with a ring forcep with a twisting maneuver. A medium sharp curette is used and the cavity is systematically and thoroughly curettaged for again a number of smaller polyps. When this is completed the hysteroscope is reintroduced, cavity is once again noted to be fully intact, devoid of any residual tissue. Double-tooth tenaculum is removed. Cervix is clean and dry. All sponge needle and enhancement counts are correct. Patient is brought back to the recovery room in very good condition with stable vital signs including a blood pressure of 118/68, pulse 70, pulse 97%. Toradol is given prior to leaving the operative room. Patient will follow-up with me in the office in 2 weeks. Written instructions are provided.
[2021-11-25 10:38] VITALS: TEMP 98.5
[2021-11-25 11:43] VITALS: RESP 18
[2021-11-25 11:58] VITALS: BP 137/68; PULSE 62
== END 2021-11-25 12:24 | disposition home or self-care (01) ==
LOC: OR 08:48
PROVIDERS: ATTEND Obstetrics & Gynecology
DX: N95.0 Postmenopausal bleeding (principal); N84.0 Polyp of corpus uteri; I10 Essential (primary) hypertension; E78.5 Hyperlipidemia, unspecified; M19.90 Unspecified osteoarthritis, unspecified site; G43.909 Migraine, unspecified, not intractable, without status migrainosus; Z79.899 Other long term (current) drug therapy
CPT/HCPCS: 58558; 86900; 86901; 88305; 86850; J1100; J2405; J2001; J3010; J1885; J2704

== ENCOUNTER → 2023-01-19 | Outpatient (CLI) | payer BC ==
[2023-01-19 11:05] VITALS: BP 132/83; PULSE 64; RESP 16; TEMP 98.4
--- NOTE | 2023-01-19 12:01 | P.HPOB ---
History of Present Illness H&P Date: 01/19/23 Chief Complaint: The patient is here for her routine gynecologic exam and ma mmogram. This is a 72-year-old with an LMP of 2001. The patient is without gynecologic complaints. She is status post hysteroscopy with D&C on 11/25/2021, done for recurrent postmenopausal bleeding. Multiple benign polyps were removed at that time. She denies any postmenopausal bleeding since then. Review of Systems The patient has lost 7 pounds over the last year. She denies respiratory, cardiac, or G.I. problems. Past Medical History Past Medical History: Hyperlipidemia, Hypertension, Osteoarthritis (OA) Additional Past Medical History / Comment(s): hx migraines, varicose veins. 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 History of Any Multi-Drug Resistant Organisms: None Reported Past Surgical History: Breast Surgery, Orthopedic Surgery, Tonsillectomy Additional Past Surgical History / Comment(s): rt cataract. Right breast biopsy. Right arthroscopic knee surgery. Shoulder surgery. Colonoscopy 2018(2nd). Past Anesthesia/Blood Transfusion Reactions: No Reported Reaction Past Psychological History: No Psychological Hx Reported Smoking Status: Never smoker Past Alcohol Use History: Rare (3 per year.) Past Drug Use History: None Reported Additional History: She is a since August 2022. 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 - Past Family History Mother Family Medical History: Cancer Additional Family Medical History / Comment(s): Pancreatic cancer. Brother(s) Family Medical History: Cancer Additional Family Medical History / Comment(s): Pancreatic cancer. Father Family Medical History: Cancer Additional Family Medical History / Comment(s): Cancer on lip. Medications and Allergies Home Medications Medication Instructions Recorded Confirmed Type Losartan/Hydrochlorothiazide 1 each PO DAILY 04/06/22 01/19/23 History [Hyzaar 100-25 Tablet] amLODIPine/ATORVASTATIN [Caduet 5 1 tab PO DAILY 04/06/22 01/19/23 History mg-20 mg Tablet] Calcium Carbonate/Vitamin D3 1 tab PO DAILY 01/19/23 01/19/23 History [Calcium 500 mg-Vit D3 5 mcg (200 Unit)] Allergies Allergy/AdvReac Type Severity Reaction Status Date / Time No Known Allergies Allergy Verified 01/19/23 11:00 Exam Vital Signs Temp Pulse Resp BP Pulse Ox 01/19/23 11:01 98.4 F 64 16 132/83 97 Intake and Output 01/18/23 01/19/23 01/19/23 22:59 06:59 14:59 Other: Weight 111.584 kg Height 5 feet 6 inches, weight 246 pounds, BMI 39.7. This is a well-developed well-nourished white female who is alert and oriented times 3 in no acute distress. HEENT: Within normal limits. NECK: Supple without mass or thyromegaly. CHEST AND LUNGS: Clear to auscultation. HEART: Regular rate and rhythm. BREASTS: Are without mass or discharge. AXILLARY EXAM: Negative for adenopathy. BACK: Negative for CVA tenderness. ABDOMEN: Soft, nontender, without palpable masses. PELVIC EXAM: Normal external genitalia with mild atrophy. Cervix and vagina appear normal with mild atrophy. There is no unusual discharge. There is no evidence of prolapse. The uterus is midposition, nongravid size and nontender. There are no palpable adnexal masses or tenderness. RECTAL EXAM: Rectovaginal exam is negative for mass or tenderness and is negative for occult blood. EXTREMITIES: Nontender. IMPRESSION: 1. 72-year-old menopausal female with normal gynecologic exam. PLAN: 1. Pap smears have been discontinued. 2. Self breast awareness was discussed with the patient. We have also discussed symptoms associated with inflammatory breast cancer. 3. Screening mammogram was done today. 4. Osteoporosis prevention was discussed. I have stressed the importance of adequate calcium, vitamin D and regular exercise. Recommended amounts of calcium and vitamin D were also discussed. Her last bone density test was done on 01/19/2018 and was normal. We will plan on repeating bone density testing in 1 year. 5. We have again discussed the importance of limiting me know if she has any postmenopausal vaginal bleeding. She has not had any since her D&C in 2021, one year ago. 6. She was advised to return in one year for her annual well woman exam.
--- NOTE | 2023-01-20 09:07 | MM ---
Reason for Exam: Screening (asymptomatic). Last mammogram was performed 1 year(s) and 2 month(s) ago. Patient History: Menarche at age 14. First Full-Term at age 27. Postmenopausal. 1996, Benign Core Biopsy on the left side. Risk Values: Aliyah 5 year model risk: 2.3%. NCI Lifetime model risk: 6.3%. Prior Study Comparison: 03/21/2019 Bilateral Screening Mammogram, [facility]. 11/07/2020 Bilateral Screening Mammogram, [facility]. 11/20/2021 Bilateral Screening Mammogram, [facility]. Tissue Density: There are scattered fibroglandular densities. Findings: Analyzed By CAD. There are a few scattered and loosely grouped small benign-appearing round calcifications bilaterally redemonstrated. There is no suspicious group of microcalcifications or new suspicious mass in either breast. Overall Assessment: Benign, BI-RAD 2 Management: Screening Mammogram of both breasts in 1 year. . Patient should continue monthly self-breast exams. A clinical breast exam by your physician is recommended on an annual basis. This exam should not preclude additional follow-up of suspicious palpable abnormalities. Note on Aliyah scores and lifetime risk: 1. A Aliyah score greater than 3% is considered moderate risk. If this is the case, consider specialist referral to assess eligibility for a risk reducing agent. 2. If overall lifetime risk for the development of breast cancer is 20% or higher, the patient may qualify for future screening with alternating mammogram and breast MRI. Electronically signed and approved by: Enrrique Sharp M.D.
== END | disposition home or self-care (01) ==
LOC: RADMAMWWP 10:27
PROVIDERS: ATTEND Obstetrics & Gynecology
DX: Z01.419 Encounter for gynecological examination (general) (routine) without abnormal findings (principal); Z12.31 Encounter for screening mammogram for malignant neoplasm of breast; E78.5 Hyperlipidemia, unspecified; I10 Essential (primary) hypertension; M19.90 Unspecified osteoarthritis, unspecified site; Z78.0 Asymptomatic menopausal state
CPT/HCPCS: 77063; 77067

== ENCOUNTER 2023-05-21 17:10 | Emergency (ER) | payer BC ==
[2023-05-21 17:28] VITALS: TEMP 98.3
[2023-05-21] MEDS ORDERED: DIPH,PERTUS(ACELL)TETVAC-LF 0.5 ML VIAL IM ONE (20:47)
[2023-05-21] MEDS ORDERED: LIDOCAINE 1% INJ 10MG/ML (20 ML MDV) SQ ONE (20:47)
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
[2023-05-21 22:55] VITALS: BP 148/76; PULSE 68; RESP 18
== END 2023-05-21 22:49 | disposition home or self-care (01) ==
LOC: EC 17:10
DX: S81.811A Laceration without foreign body, right lower leg, initial encounter (principal); I10 Essential (primary) hypertension; Z23 Encounter for immunization; Z79.899 Other long term (current) drug therapy; W22.8XXA Striking against or struck by other objects, initial encounter
CPT/HCPCS: 90715; 12004; 99282; 90471; J2001

== ENCOUNTER → 2024-02-02 | Outpatient (CLI) | payer MEDICARE, BC ==
[2024-02-02 09:46] VITALS: BP 166/83; PULSE 65; RESP 16; TEMP 98.4
--- NOTE | 2024-02-02 10:28 | P.HPOB ---
History of Present Illness H&P Date: 02/02/24 Chief Complaint: The patient is here for her routine gynecologic exam and ma mmogram. This is a 73-year-old with an LMP of 2001. The patient is without gynecologic complaints. She denies any postmenopausal bleeding. She states her upper abdomen has felt a little harder than usual and thinks this may be related to some weight gain. She denies any low abdominal changes or bloating. She denies any pain associated with the abdomen. Review of Systems The patient has gained 16 pounds over the last year. She denies respiratory, cardiac, or G.I. problems. Past Medical History Past Medical History: Hyperlipidemia, Hypertension, Osteoarthritis (OA) Additional Past Medical History / Comment(s): hx migraines, varicose veins. 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 History of Any Multi-Drug Resistant Organisms: None Reported Past Surgical History: Breast Surgery, Orthopedic Surgery, Tonsillectomy Additional Past Surgical History / Comment(s): rt cataract. Right breast biopsy. Right arthroscopic knee surgery. Shoulder surgery. Colonoscopy 2017(2nd). Hysteroscopy with D&C in 2021. Past Anesthesia/Blood Transfusion Reactions: No Reported Reaction Past Psychological History: No Psychological Hx Reported Smoking Status: Never smoker Past Alcohol Use History: Rare (0 to 3/year) Past Drug Use History: None Reported Additional History: She has been a since August 2022. She has not been sexually active. 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 - Past Family History Mother Family Medical History: Cancer Additional Family Medical History / Comment(s): Pancreatic cancer. Brother(s) Family Medical History: Cancer Additional Family Medical History / Comment(s): Pancreatic cancer. Father Family Medical History: Cancer Additional Family Medical History / Comment(s): Cancer on lip. Medications and Allergies Home Medications Medication Instructions Recorded Confirmed Type Losartan/Hydrochlorothiazide 1 each PO DAILY 04/06/22 01/19/23 History [Hyzaar 100-25 Tablet] amLODIPine/ATORVASTATIN [Caduet 5 1 tab PO DAILY 04/06/22 01/19/23 History mg-20 mg Tablet] Calcium Carbonate/Vitamin D3 1 tab PO DAILY 01/19/23 01/19/23 History [Calcium 500 mg-Vit D3 5 mcg (200 Unit)] Allergies Allergy/AdvReac Type Severity Reaction Status Date / Time No Known Allergies Allergy Verified 02/02/24 09:44 Exam Vital Signs Temp Pulse Resp BP Pulse Ox 02/02/24 09:44 98.4 F 65 16 166/83 97 Intake and Output 02/01/24 02/02/24 02/02/24 22:59 06:59 14:59 Other: Weight 118.841 kg Height 5 feet 6 inches, weight 262 pounds, BMI 42.3. This is a well-developed well-nourished heavyset white female who is alert and oriented times 3 in no acute distress. HEENT: Within normal limits. NECK: Supple without mass or thyromegaly. CHEST AND LUNGS: Clear to auscultation. HEART: Regular rate and rhythm. BREASTS: Are without mass or discharge. AXILLARY EXAM: Negative for adenopathy. BACK: Negative for CVA tenderness. ABDOMEN: Soft, nontender, without palpable masses. The abdomen is nondistended. PELVIC EXAM: Normal external genitalia with mild atrophy. Cervix and vagina appear normal with mild atrophy. There is no unusual discharge. There is no evidence of prolapse. The uterus is midposition, nongravid size and nontender. There are no palpable adnexal masses or tenderness. Bimanual examination is somewhat limited secondary to her size. RECTAL EXAM: Rectovaginal exam is negative for mass or tenderness and is negative for occult blood. EXTREMITIES: Nontender. IMPRESSION: 1. 73-year-old menopausal female with normal gynecologic exam. 2. The patient feels that the upper abdomen feels slightly firmer without pain. There are no significant physical findings on exam today. 3. Elevated blood pressure with history of chronic hypertension. 4. Weight gain. PLAN: 1. Pap smears have been discontinued. 2. Self breast awareness was discussed with the patient. We have also discussed symptoms associated with inflammatory breast cancer. 3. Screening mammogram will be done today. 4. I have stressed the importance of following up with Dr. Perea regarding the upper abdominal firmness if this continues. Based on her exam and her description, I do not feel this is gynecologic in nature. 5. Weight control was discussed with the patient. I have stressed the importance of good nutrition, regular exercise, adequate fiber and regular meals. 6. Osteoporosis prevention was discussed. I have stressed the importance of adequate calcium, vitamin D and regular exercise. Recommended amounts of calcium and vitamin D were also discussed. Last bone density test was about 6 years ago and it was normal. I have recommended that she repeat the bone density test and the order slip was given to the patient for this. 7. Her last colonoscopy was approximately in 2018. She was instructed to check with her PCP to see when she is due for her next one. 8. We have discussed her elevated blood pressure. I have recommended that she check her own blood pressure on a regular basis and follow-up with her PCP for blood pressure elevations. 9. She was advised to return in one year for her annual well woman exam.
== END ==
LOC: WWCWWP 09:17
PROVIDERS: ATTEND Obstetrics & Gynecology
DX: Z12.31 Encounter for screening mammogram for malignant neoplasm of breast (principal); I10 Essential (primary) hypertension; R63.5 Abnormal weight gain; Z79.899 Other long term (current) drug therapy; Z78.0 Asymptomatic menopausal state; Z68.41 Body mass index [BMI] 40.0-44.9, adult
CPT/HCPCS: 77063; 77067

== ENCOUNTER → 2024-02-04 | Outpatient (CLI) | payer MEDICARE, BC ==
--- NOTE | 2024-02-16 23:24 | BD ---
EXAMINATION TYPE: Axial Bone Density DATE OF EXAM: 02/04/2024 CLINICAL HISTORY: 73 years old Female. ICD-10 CODE: Z78.0 MENOPAUSAL STATE Height: 66" Weight: 260lbs FRAX RISK QUESTIONS: Alcohol (3 or more units per day): No Family History (Parent hip fracture): No Glucocorticoids (More than 3mos): No (Ex: prednisone, prednisolone, methylprednisolone, dexamethasone, and hydrocortisone). History of Fracture in Adulthood: No Secondary Osteoporosis: 1. Type 1 Diabetes: No 2. Hyperthyroidism: No 3. Menopause before 45: No 4. Malnutrition: No 5. Chronic liver disease: No Rheumatoid Arthritis: No Current Tobacco Use: No RISK FACTORS HISTORY OF: Hip Fracture (Right/Left): No Spine Fracture: No History of Wrist Fracture: No Surgery to Spine/Hip(right/left)/Wrist (right/left): No MEDICATIONS: Thyroid Medications: No Osteoporosis Medications: No EXAM MEASUREMENTS: Bone mineral densitometry was performed using the Delectable System. Bone mineral density as measured about the Lumbar spine is: ----- L1-L4(G/cm2): 1.319 T Score Values are as follows: ----- L1: 0.6 ----- L2: 0.4 ----- L3: 1.8 ----- L4: 1.6 ----- L1-L4: 1.2 Z Score Values are as follows: ----- L1: 1.1 ----- L2: 0.9 ----- L3: 2.4 ----- L4: 2.1 ----- L1-L4: 1.7 Bone mineral density has: decreased -3.9% since study of: 01/19/2018 Bone mineral density about the R hip (g/cm2): 1.033 Bone mineral density about the L hip (g/cm2): 1.147 T Score values are as follows: -----R Neck: -0.1 -----L Neck: 0.4 -----R Total: 0.2 -----L Total: 1.1 Z Score values are as follows: -----R Neck: 0.9 -----L Neck: 1.4 -----R Total: 1.0 -----L Total: 1.9 Bone mineral density has: increased 2.3% since study of: 01/19/2018 FRAX%s: The graph provided illustrates a 6.6% chance for a major osteoporotic fx and a 0.4% chance fo r the hips probability for fx in 10 years time. IMPRESSION: Normal (Values between +1 and -1 indicate normal bone mass). Consider repeating this study in 5 year s or sooner if there is some new clinical indication. NOTE: T-SCORE=SD OF THE YOUNG ADULT MEAN.
== END | disposition home or self-care (01) ==
LOC: RADBDWWP 08:40
PROVIDERS: ATTEND Obstetrics & Gynecology
DX: Z78.0 Asymptomatic menopausal state (principal)
CPT/HCPCS: 77080

== ENCOUNTER → 2025-02-28 | Outpatient (CLI) | payer MEDICARE, BC ==
[2025-02-28 09:31] VITALS: BP 152/71; PULSE 70; RESP 16; TEMP 98.3
--- NOTE | 2025-02-28 09:58 | P.HPOB ---
History of Present Illness H&P Date: 02/28/25 Chief Complaint: The patient is here for her routine gynecologic exam and ma mmogram. This is a 74-year-old G2, P2 with an LMP of 2001. The patient is without gynecologic complaints and denies any postmenopausal bleeding. Review of Systems The patient has gained 3 pounds over the last year. She denies respiratory, cardiac, or G.I. problems. She denies shortness of breath, chest pain or palpitations. Past Medical History Past Medical History: Hyperlipidemia, Hypertension, Osteoarthritis (OA) Additional Past Medical History / Comment(s): hx migraines, varicose veins. 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 History of Any Multi-Drug Resistant Organisms: None Reported Past Surgical History: Breast Surgery, Orthopedic Surgery, Tonsillectomy Additional Past Surgical History / Comment(s): rt cataract. Right breast biopsy. Right arthroscopic knee surgery. Shoulder surgery. Colonoscopy 2018 (2nd). Hysteroscopy with D&C in 2021. Past Anesthesia/Blood Transfusion Reactions: No Reported Reaction Past Psychological History: No Psychological Hx Reported Smoking Status: Never smoker Past Alcohol Use History: Rare (0-3 drinks per year.) Past Drug Use History: None Reported Additional History: She has been a since August 2022. She is no longer sexually active. 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 - Past Family History Mother Family Medical History: Cancer Additional Family Medical History / Comment(s): Pancreatic cancer. Brother(s) Family Medical History: Cancer Additional Family Medical History / Comment(s): Pancreatic cancer. Father Family Medical History: Cancer Additional Family Medical History / Comment(s): Cancer on lip. Medications and Allergies Home Medications Medication Instructions Recorded Confirmed Type Losartan/Hydrochlorothiazide 1 each PO DAILY 04/06/22 02/28/25 History [Hyzaar 100-25 Tablet] amLODIPine/ATORVASTATIN [Caduet 5 1 tab PO DAILY 04/06/22 02/28/25 History mg-20 mg Tablet] Calcium Carbonate/Vitamin D3 1 tab PO DAILY 01/19/23 02/28/25 History [Calcium 500 mg-Vit D3 5 mcg (200 Unit)] Allergies Allergy/AdvReac Type Severity Reaction Status Date / Time No Known Allergies Allergy Verified 02/28/25 09:28 Exam Vital Signs Temp Pulse Resp BP Pulse Ox 02/28/25 09:28 98.3 F 70 16 152/71 97 Intake and Output 02/27/25 02/28/25 02/28/25 22:59 06:59 14:59 Other: Weight 120.202 kg Height 5 feet 6 inches, weight 265 pounds, BMI 42.8. This is a well-developed well-nourished heavyset white female who is alert and oriented times 3 in no acute distress. HEENT: Within normal limits. NECK: Supple without mass or thyromegaly. CHEST AND LUNGS: Clear to auscultation. HEART: Regular rate with irregularly irregular rhythm. BREASTS: Are without mass or discharge. AXILLARY EXAM: Negative for adenopathy. BACK: Negative for CVA tenderness. ABDOMEN: Soft, nontender, without palpable masses. PELVIC EXAM: Normal external genitalia with mild atrophy. Cervix and vagina appear normal with mild atrophy. There is no unusual discharge. There is no evidence of prolapse. The uterus is midposition, nongravid size and nontender. There are no palpable adnexal masses or tenderness. Bimanual examination is somewhat limited secondary to her size. RECTAL EXAM: Rectovaginal exam is negative for mass or tenderness and is negative for occult blood. EXTREMITIES: Nontender. IMPRESSION: 1. 74-year-old menopausal female with normal gynecologic exam. 2. Irregular heart rhythm on exam today. The patient states that she sees her benefits director, Dr. Pedersen, about every 6 months. She does not think she has a history of an irregular heart rhythm. Differential diagnosis will include frequent PACs, frequent PVCs, atrial fibrillation, or other arrhythmia. 3. Elevated blood pressure. PLAN: 1. Pap smears have been discontinued. 2. Self breast awareness was discussed with the patient. We have also discussed symptoms associated with inflammatory breast cancer. 3. Screening mammogram will be done today. 4. An appointment has been made for her to see her benefits director tomorrow on 03/01/2025. 5. We have discussed her elevated blood pressure. She states she did not take her blood pressure medication yet today. I have recommended that she check her blood pressure on a regular basis and to follow-up with her benefits director and PCP for blood pressure elevations. 6. She was advised to return in one year for her annual well woman exam.
--- NOTE | 2025-02-28 10:24 | MM ---
Reason for Exam: Screening (asymptomatic). Last mammogram was performed 1 year(s) and 1 month(s) ago. Patient History: Menarche at age 14. First Full-Term at age 27. Postmenopausal. 1996, Benign Core Biopsy on the left side. Risk Values: Aliyah 5 year model risk: 2.3%. NCI Lifetime model risk: 5.7%. Prior Study Comparison: 11/20/2021 Bilateral Screening Mammogram, [facility]. 01/19/2023 Bilateral MG 3D screening mammo w/cad, [facility]. 02/02/2024 Bilateral MG 3D screening mammo w/cad, [facility]. Tissue Density: There are scattered areas of fibroglandular density. Findings: Analyzed By CAD. There is no suspicious group of microcalcifications or new suspicious mass in either breast. Overall Assessment: Negative, BI-RAD 1 Management: Screening Mammogram of both breasts in 1 year. . Patient should continue monthly self-breast exams. A clinical breast exam by your physician is recommended on an annual basis. This exam should not preclude additional follow-up of suspicious palpable abnormalities. Note on Aliyah scores and lifetime risk: 1. A Aliyah score greater than 3% is considered moderate risk. If this is the case, consider specialist referral to assess eligibility for a risk reducing agent. 2. If overall lifetime risk for the development of breast cancer is 20% or higher, the patient may qualify for future screening with alternating mammogram and breast MRI. [facility], , 02/28/2025 10:16 AM. Electronically signed and approved by: Tor Cabezas M.D. Radiolog[facility]
== END ==
LOC: WWCWWP 09:21
PROVIDERS: ATTEND Obstetrics & Gynecology
DX: Z01.419 Encounter for gynecological examination (general) (routine) without abnormal findings (principal); Z12.31 Encounter for screening mammogram for malignant neoplasm of breast; I10 Essential (primary) hypertension; I49.9 Cardiac arrhythmia, unspecified; I48.91 Unspecified atrial fibrillation; I49.3 Ventricular premature depolarization; Z78.0 Asymptomatic menopausal state
CPT/HCPCS: 77063; 77067

== ENCOUNTER → 2025-03-01 | Outpatient (CLI) | payer MEDICARE, BC ==
[2025-03-01 19:20] LABS: ALT 16 U/L (8-44); AST 15 U/L (13-35); Cholesterol 159.00 mg/dL (0.00-200.00); HDL Cholesterol 37.50 mg/dL (40.00-60.00); LDL Cholesterol,Calculated 98.7 mg/dL (0.0-131.0); Triglycerides 114.00 mg/dL (0.00-149.00); VLDL Calculation 22.80 mg/dL (5.00-40.00)
== END | disposition home or self-care (01) ==
LOC: LABWHC1 13:15
PROVIDERS: ATTEND Internal Medicine Interventional Cardiology
DX: E78.00 Pure hypercholesterolemia, unspecified (principal)
CPT/HCPCS: 36415; 80061; 84450; 84460